=== PATIENT | female | born 1960 | race Caucasian/White ===

== ENCOUNTER → 2023-11-22 10:29 | Outpatient (REF) | payer BC, SELFPAY | LOC: HWRAD 10:29 | PROVIDERS: ATTENDING PHYSICIAN Internal Medicine Endocrinology, Diabetes & Metabolism; FAMILY PHYSICIAN Family Medicine | DX: M85.80 Other specified disorders of bone density and structure, unspecified site (principal) | CPT/HCPCS: 77080; 77081 ==

== ENCOUNTER 2024-08-28 20:43 | Emergency (ER) | payer BC, SELFPAY ==
[2024-08-28 20:53] VITALS: BP 131/74
[2024-08-28 21:16] LABS: % Basophils 0.5 % (0-2); % Immature Granulocytes 0.3 % (0-0.5); % Lymphocytes 38.1 % (20.5-51.1); % Monocytes 7.2 % (1.7-9.3); % Neutrophils 51.9 % (42.2-75.2); Absolute Eosinophils 0.1 10^3/uL (0-0.7); Absolute Lymphocytes 2.5 10^3/uL (1.2-3.4); Absolute Monocytes 0.5 10^3/uL (0.1-0.6); Absolute Neutrophils 3.4 10^3/uL (1.4-6.5); Hematocrit 39.6 % (37.0-47.0); Hemoglobin 13.7 g/dL (12.0-16.0); Mean Corp Hgb Conc. 34.6 g/dL (33.0-37.0); Mean Corpuscular Hgb 29.8 pg (27.0-31.0); Mean Corpuscular Volume 86.1 fL (81.0-99.0); Mean Platelet Volume 9.3 fL (7.4-10.4); Nucleated Red Blood Cells % 0 %; Platelet Count 221 10^3/uL (130-400); White Blood Cell Count 6.5 10^3/uL (4.8-10.8)
[2024-08-28 21:28] LABS: ALT (SGPT) 19 U/L (0-35); AST (SGOT) 21 U/L (14-36); Alkaline Phosphatase 118 U/L (38-126); Blood Urea Nitrogen 27 mg/dl (7-17); Calcium 9.6 mg/dl (8.4-10.2); Carbon Dioxide 32 mmol/L (22-30); Chloride 105 mmol/L (98-107); Glucose 104 mg/dl (70-99); Sodium 142 mmol/L (135-145); Total Bilirubin 0.4 mg/dl (0.2-1.3); Total Protein 6.3 g/dl (6.3-8.2); eGFR > 60.00
[2024-08-28 21:31] LABS: COVID-19 Antigen Negative (Negative)
[2024-08-29 00:09] VITALS: BMI 27.1
[2024-08-29 00:10] VITALS: BP 109/66
--- NOTE | 2024-08-29 00:11 | ED.GENMED ---
History of Present Illness
General
Chief Complaint: Cough
Source: patient
Exam Limitations: none
Time Seen by Provider: 08/28/24 23:36
Nursing documentation reviewed up to this point in time: agreed with
History of Present Illness
History of Present Illness:
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
cancer hyperparathyroid, no calf pain no history of DVT PE
Past History
Past History
ED Past Medical History: Cancer
ED Past Surgical History: Gynecological
Social History
Tobacco: Non-smoker
Alcohol: None
Drug: None
Living: with family
Employment: Employed
Review of Systems
Review of Systems
All Other Systems: Not applicable
Constitutional: Reports fatigue; Denies fever
EENT: Reports no symptoms
Respiratory: Reports cough and trouble breathing
Cardiac: Reports no symptoms
ABD/GI: Reports no symptoms
Neurological: Reports weakness
Phy Exam
Physical Exam
Physical Exam:
Physical Exam
General: no apparent distress, not acutely ill
Neck: No jaundice no stridor
Heart: s1/s2 regular rate and rhythm, no murmur. equal radial pulses.
Lungs: Fair air movement expiratory wheeze bilateral
Abdomen: Not tender
Neuro: alert and oriented. no focal neurological deficits
Skin: no rash
Psychiatric: well kept. interactive and cooperative
Extremities: no edema. no calf tenderness.
Course
Orders/Labs/Results
Orders:
Orders
08/28/24 20:57
EKG [Electrocardiogram (*1)] Urgent
Reason for Study: Shortness of Breath
EKG- Treatment ONCE
08/28/24 20:58
Chest [CR Chest - 2 Views ] Urgent
Comment:
Reason For Exam: SOB/COUGH
08/28/24 21:07
CBC/With Diff [Complete Blood Count/With Diff] Urgent
CMP [Comprehensive Metabolic Panel] Urgent
COVID-19 Antigen Urgent
Source: Nasal Swab
Influenza A+B Rapid Molecular Urgent
NAUN Source: Nasal Swab
Specimen Description:
08/29/24 00:02
Ipratropium/Albuterol Sulfate [Duoneb] 3 ml INH R NOW STA
Prednisone [Deltasone] 50 mg PO NOW STA
Abnormal Lab Results
08/28/24
21:07
Carbon Dioxide 32 H mmol/L
(22-30)
BUN 27 H mg/dl
(7-17)
Glucose 104 H mg/dl
(70-99)
08/28/24 21:07
08/28/24 21:07
Vital Signs
Initial and Last Documented VS:
Initial Vital Signs
Temp Pulse Resp BP Pulse Ox
97.9 F 67 15 131/74 97
08/28/24 20:53 08/28/24 20:53 08/28/24 20:53 08/28/24 20:53 08/28/24 20:53
Last Documented Vital Signs
Temp Pulse Resp BP Pulse Ox
97.9 F 50 15 109/66 98
08/28/24 20:53 08/29/24 00:10 08/29/24 00:10 08/29/24 00:10 08/29/24 00:10
*Critical Care Note
Total Time (30-74mins, 75-104mins- exclusive of procedures): Not Applicable
Update Note
Update Note:
Update chest x-ray report noted labs noted patient feeling better after nebs and steroids
ED Attending Note
-
Portions of this chart may have been created with voice recognition software.� Occasional wrong word or��sound alike� substitutions may have occurred due to the inherent limitations of voice recognition software.
Discharge Plan
Departure
Patient Disposition: Home (Routine Discharge)
Date of Disposition: 08/29/24
Time of Disposition: 00:52
Patient with high blood pressure during this ER visit?: No
Condition: Good
Discharge Problem:
Acute bronchitis
Instructions: Acute Bronchitis, Adult (DC)
Prescriptions:
New
prednisone 10 mg tablet
10 mg PO DIRECTED Qty: 42 0RF
Rx Instructions:
4 pills a day for 3 days, 3 pills a day for 3 days, 2 pills a day for 3 days, 1 pill a day for 3 days
albuterol sulfate 90 mcg/actuation HFA aerosol inhaler
2 inh inhalation Q6H PRN (Reason: shortness of breath or wheezing) Qty: 8.5 2RF
albuterol sulfate 2.5 mg /3 mL (0.083 %) solution for nebulization
2.5 mg inhalation Q6H Qty: 90 2RF
Referrals:
Soledad Gillespie MD [Family Provider] - Next open appointment
Interventions
Interventions:
*Risk Screen - Suicide Last Done: 08/28/24 20:53
*General Assessment Last Done: 08/28/24 20:53
*Neglect/Abuse Screening Last Done: 08/28/24 20:53
*ED- Fall Risk Assessment Last Done: 08/29/24 00:09
*ED COVID-19 Vaccine History Last Done: 08/28/24 20:53
*Nursing Disposition Last Done: 08/29/24 01:25
ED- Pulmonary Assessment Last Done: 08/29/24 00:10
Discharge Date and Time
Discharge Date/Time: 08/29/24 01:26
Print Language: DIVEHI
[2024-08-29] MEDS: DUONEB 3 ML INH (00:17)
[2024-08-29] MEDS: DELTASONE 50 MG PO (00:17)
== END 2024-08-29 01:26 | disposition home or self-care (01) ==
LOC: EMR 20:43
PROVIDERS: EMERGENCY PHYSICIAN Emergency Medicine; FAMILY PHYSICIAN Family Medicine
DX: J20.9 Acute bronchitis, unspecified (principal); Z11.52 Encounter for screening for COVID-19
CPT/HCPCS: 99285; 94640; 71046; 80053; 85025; 87502; 87811; 93005